=== PATIENT | female | born 1970 | race Caucasian/White ===

== ENCOUNTER 2020-03-07 08:31 | Outpatient (CLI) | payer OTHER, SELFPAY ==
--- NOTE | ~2020-03-07 | MM_ITS ---
EXAMINATION: MM screening [place] [facility] w [facility]an HISTORY: Screening TECHNIQUE: Craniocaudal and mediolateral oblique 3-D tomosynthesis images were obtained and synthetic 2-D images were generated. CAD analysis was submitted and interpreted. COMPARISON: Comparison to multiple prior studies sequentially, with oldest reviewed study dated 02/03. BREAST PARENCHYMAL COMPOSITION: The breasts are heterogeneously dense, which may obscure small masses . FINDINGS: There is no evidence of suspicious mass, calcification, or architectural distortion to sugg est malignancy in either breast. There has been no suspicious interval change. IMPRESSION: 1. No mammographic evidence of malignancy. 2. Recommend routine screening mammography in one year. BI-RADS Category 1: Negative Reviewed, dictated and finalized at location A. ESIASTICAL WORKER
== END 2020-03-07 08:32 | disposition home or self-care (01) ==
LOC: ANHIMG 08:33
PROVIDERS: PCP Family Medicine; Visit Provider Obstetrics & Gynecology
DX: Z12.31 Encounter for screening mammogram for malignant neoplasm of breast (principal)
CPT/HCPCS: 77063; 77067

== ENCOUNTER 2021-04-26 09:13 | Outpatient (CLI) | payer BC, SELFPAY ==
--- NOTE | ~2021-04-26 | MM_ITS ---
EXAMINATION: MM screening [facility] BI w alan HISTORY: Screening mammogram TECHNIQUE: Craniocaudal and mediolateral oblique 3-D tomosynthesis images were obtained and synthetic 2-D images were generated. CAD analysis was submitted and interpreted. COMPARISON: 03/07/2020, 03/04/2019, 02/28/2018 BREAST PARENCHYMAL COMPOSITION: The breasts are heterogeneously dense, which may obscure small masses . FINDINGS: There is no evidence of suspicious mass, calcification, or architectural distortion to sugg est malignancy in either breast. There has been no suspicious interval change. IMPRESSION: 1. No mammographic evidence of malignancy. 2. Recommend routine screening mammography in one year. BI-RADS Category 1: Negative Reviewed, dictated and finalized at location A. SCIENCE AND PLANNING
== END 2021-04-26 09:14 | disposition home or self-care (01) ==
LOC: ANHIMG 09:16
PROVIDERS: PCP Physician Assistant; Visit Provider Obstetrics & Gynecology
DX: Z12.31 Encounter for screening mammogram for malignant neoplasm of breast (principal)
CPT/HCPCS: 77063; 77067

== ENCOUNTER 2021-05-15 00:53 | Day surgery (SDC) | payer BC, SELFPAY ==
[2021-04-26 12:44] VITALS: BMI 31.0
--- NOTE | 2021-05-12 13:10 | PM.HPGS ---
History of Present Illness History of Present Illness Consent: Risks, benefits, and alternatives have been discussed and questions answered. Patient agrees to proceed with procedure. Chief complaint: neoplasm screening Narrative: Chanda Parks is a 50 year old female Referred for colon cancer screening Review of Systems Review of Systems: All systems reviewed & are unremarkable except as noted in HPI and below PMFSH Past Medical History Medical History GERD (gastroesophageal reflux disease) Hyperlipidemia Surgical History Surgical History History of tubal ligation Social History Social History Years smoked: 20 Smoking status: Former smoker Tobacco type: cigarettes Alcohol intake: current Drinks per week: 6 Living arrangements: with family Spiritual care concerns: No Meds Home Medications and Allergies Home Medications Medication Instructions Recorded Confirmed Type bupropion HCl 150 mg PO DAILY 04/26/21 05/15/21 History venlafaxine 75 mg PO DAILY 04/26/21 04/26/21 History Allergies Allergy/AdvReac Type Severity Reaction Status Date / Time No Known Allergies Allergy Unknown Unverified 05/15/21 06:15 Exam Resp: Auscultation: clear to auscultation bilaterally Cardio: Rate: regular rate Rhythm: regular rhythm GI: GI Palp: Yes Soft to palpation and No Tenderness to palpation present (GI) Assessment and Plan Assessment and plan (1) Colon cancer screening: Code(s): Z12.11 - Encounter for screening for malignant neoplasm of colon Status: Acute Assessment and Plan: Colonoscopy with possible biopsy or polypectomy or cautery or injection of substances.
[2021-05-15] MEDS: LACTATED RINGERS 1,000 ML 150 ML IV CONT (06:30)
--- NOTE | 2021-05-15 06:45 | WPDANESEPPF ---
Anes - Initial Pre Proc Eval Procedure: Operation Date: 05/15/21 11:30 Proposed Procedures p Screening Colonoscopy - Julian Watts MD Date/Time: 05/15/21 06:45 Surgeon: Julian Watts MD Pre Op Diagnosis: neoplasm screening Patient Data Age: 50 Gender: F Height: 1.57 m Weight: 76 kg Allergies Allergy/AdvReac Type Severity Reaction Status Date / Time No Known Allergies Allergy Unknown Unverified 05/15/21 06:15 Home Medications Medication Instructions Recorded Confirmed Type bupropion HCl 150 mg PO DAILY 04/26/21 05/15/21 History venlafaxine 75 mg PO DAILY 04/26/21 04/26/21 History Patient hx anesthesia problems: none Family hx anesthesia problems: none Results Review: All pre-operative results and documents have been reviewed as part of the pre-operative evaluation. [facility] Past Medical History Medical History (Updated 05/12/21 @ 13:11 by Julian Watts MD) GERD (gastroesophageal reflux disease) Hyperlipidemia Surgical History Surgical History (Updated 05/12/21 @ 12:11 by Davide Oliver DO) History of tubal ligation Social History Social History Years smoked: 20 Smoking status: Former smoker Tobacco type: cigarettes Alcohol intake: current Drinks per week: 6 Living arrangements: with family Spiritual care concerns: No Anes - Eval Final PreProcedure Day of Procedure 05/15/21 06:45 Patient weight: obese Heart: regular rate and rhythm Lungs: clear to auscultation and normal air movement Airway: Mallampati scale class II Neurological: alert and oriented Last oral intake: >/= 8 hours ASA classification: II Emergent: no Anesthetic plan: proceed Anesthesia type and monitoring: general GIVS and standard monitoring Results Review: All pre-operative results and documents have been reviewed as part of the pre-operative evaluation. Informed Consent: The patient's anesthetic plan and its attendant risks and benefits were discussed with the patient/family/POA. Questions were solicited and answers provided to the satisfaction of the patient/family/POA.
[2021-05-15 07:45] VITALS: BP 97/63; PULSE 74; RESP 20; O2SAT 98
[2021-05-15 07:55] VITALS: BP 126/85; PULSE 74; RESP 20; O2SAT 100
[2021-05-15 08:05] VITALS: BP 128/65; PULSE 70; RESP 18; O2SAT 100
== END 2021-05-15 11:28 | disposition home or self-care (01) ==
PROVIDERS: PCP Physician Assistant; Visit Provider Internal Medicine Gastroenterology
PROC: 0DJD8ZZ Inspection of Lower Intestinal Tract, Via Natural or Artificial Opening Endoscopic (ICD-10-PCS; CPT 45378; principal; 2021-05-15 11:30)
DX: Z12.11 Encounter for screening for malignant neoplasm of colon (principal); K57.30 Diverticulosis of large intestine without perforation or abscess without bleeding; K21.9 Gastro-esophageal reflux disease without esophagitis; E78.5 Hyperlipidemia, unspecified; Z87.891 Personal history of nicotine dependence; E66.9 Obesity, unspecified; Z68.30 Body mass index [BMI] 30.0-30.9, adult
CPT/HCPCS: 45378; J2704; J7120

== ENCOUNTER → 2022-05-18 10:28 | Outpatient (CLI) | payer BC, SELFPAY ==
--- NOTE | ~2022-05-18 | DEXA_ITS ---
Bone Density Report Name: KRISTI GAITAN Age: 51 Sex: Female Ethnicity: White Date of : 1970 Indication: postmenopausal; screening for osteoporosis; prior fracture; Referring Provider: JAMES, AMINAH Study: Bone densitometry was performed. Exam Date: May 18, 2022 Accession number: [id number] Bone Density: Region BMD T-score Z-score Classification AP Spine (L1-L4) 1.065 0.2 1.0 Normal Femoral Neck (Left) 0.678 -1.5 -0.7 Osteopenia Total Hip (Left) 0.790 -1.2 -0.7 Osteopenia Femoral Neck (Right) 0.732 -1.1 -0.2 Osteopenia Total Hip (Right) 0.828 -0.9 -0.4 Normal Total Hip Mean 0.809 -1.1 -0.6 Osteopenia World Health Organization criteria for BMD impression classify patients as: Normal (T-score at or above -1.0), Osteopenia (T-score between -1.0 and -2.5), or Osteoporosis (T-score at or below -2.5). 10-year Fracture Risk(1): Major Osteoporotic Fracture 9.0% Hip Fracture 0.8% Reported Risk Factors: [place] (), Neck BMD=0.678, BMI=32.0, previous fracture (1) FRAX(R) Version 3.08. Fracture probability calculated for an untreated patient. Fracture probability may be lower if the patient has received treatment. Clinical Information Provided by Patient: Has had a low trauma fracture Has used the following medications: Vitamin D, MTV Patient maximum height was 63.0 Menopause Age: 45 No regular weight bearing exercise Drinks caffeinated beverages Onset of menses at age 12 Number of children 3 Impression: The patient has low bone mass, based on the Left Femoral Neck T-score. The patient has an estimated ten-year risk of hip fracture of 0.8% and an estimated ten-year risk of major fracture of 9%, based on the WHO FRAX algorithm. The patient has risk factors, including: previous fracture. Discussion: BONE DENSITY IS LOW AT ONE OR MORE SKELETAL SITES. This patient's lowest T-score is low at one or more skeletal sites. It meets the World Health Organization's (WHO) criteria for ?low bone mass? (T-score between -1.0 and -2.5). The patient's 10-year risk of fracture as calculated by FRAX is less than the threshold where pharmacological therapy is recommended by the National Osteoporosis Foundation (NOF). However, all treatment decisions require clinical judgment and consideration of individual patient factors, including patient preferences, comorbidities, previous drug use, risk factors not captured in the FRAX model (e.g., frailty, falls, vitamin D deficiency, increased bone turnover, interval significant decline in bone density) and possible under or overestimation of fracture risk by FRAX. The patient should follow a healthful lifestyle (good nutrition with adequate calcium and vitamin D, and appropriate weight-bearing exercise). Follow-Up: Consider repeating this study in 2
== END ==
PROVIDERS: PCP Nurse Practitioner; Visit Provider Nurse Practitioner
DX: Z78.0 Asymptomatic menopausal state (principal); M85.852 Other specified disorders of bone density and structure, left thigh; M85.851 Other specified disorders of bone density and structure, right thigh
CPT/HCPCS: 77080

== ENCOUNTER → 2022-06-19 14:54 | Outpatient (CLI) | payer BC, SELFPAY ==
--- NOTE | ~2022-06-19 | MM_ITS ---
EXAMINATION: MM screening [place] w [facility]an HISTORY: Screening TECHNIQUE: Craniocaudal and mediolateral oblique 3-D tomosynthesis images were obtained and synthetic 2-D images were generated. CAD analysis was submitted and interpreted. COMPARISON: Comparison to multiple prior studies sequentially, with oldest reviewed study dated 02/04. BREAST PARENCHYMAL COMPOSITION: The breasts are heterogeneously dense, which may obscure small masses . FINDINGS: There are new small bilateral breast masses which are obscured by fibroglandular tissue. Ri ght breast mass located centrally. Left breast mass located in the lower inner quadrant, middle third . IMPRESSION: 1. Small bilateral breast masses. 2. Additional spot compression and mediolateral views with possible follow-up breast ultrasound recom mended. BI-RADS Category 0: Incomplete: Needs additional imaging evaluation. Reviewed, dictated and finalized at location A. E FEEDER IMPRESSION: 1. Small bilateral breast masses. 2. Additional spot compression and mediolateral views with possible follow-up b reast ultrasound recommended. BI-RADS Category 0: Incomplete: Needs additional imaging evaluation.
== END ==
PROVIDERS: PCP Nurse Practitioner; Visit Provider Nurse Practitioner
DX: Z12.31 Encounter for screening mammogram for malignant neoplasm of breast (principal); N63.20 Unspecified lump in the left breast, unspecified quadrant; N63.10 Unspecified lump in the right breast, unspecified quadrant
CPT/HCPCS: 77063; 77067

== ENCOUNTER 2022-07-11 11:15 | Outpatient (CLI) | payer BC, SELFPAY ==
--- NOTE | ~2022-07-11 | MM_ITS ---
EXAMINATION: MM diagnostic [place] [facility] w alan HISTORY: Possible breast masses on screening mammogram TECHNIQUE: Additional 3-D tomosynthesis images of the breasts were performed and synthetic 2-D images were generated. CAD analysis was submitted and interpreted. COMPARISON: 06/19/2022, 04/26/2021, 03/07/2020 FINDINGS: There is a return to baseline fibroglandular appearance with spot compression of the breast s in the areas questioned on screening mammogram. IMPRESSION: 1. No mammographic evidence of malignancy. 2. Recommend routine screening mammography in one year. BI-RADS Category 1: Negative Reviewed, dictated and finalized at location A. HOUSE ORDER PICKER
== END 2022-07-11 11:16 | disposition home or self-care (01) ==
PROVIDERS: PCP Nurse Practitioner; Visit Provider Obstetrics & Gynecology Gynecology
DX: R92.8 Other abnormal and inconclusive findings on diagnostic imaging of breast (principal)
CPT/HCPCS: 77062; 77066; G0279

== ENCOUNTER → 2022-10-15 09:49 | Outpatient (CLI) | payer BC, SELFPAY ==
--- NOTE | ~2022-10-15 | XR_ITS ---
EXAMINATION: XR lumbar spine 2-3V DATE: 10/15/2022 10:20 INDICATION: Low back pain TECHNIQUE: Anteroposterior and lateral views of the lumbar spine, and cone-down lateral view of the l umbosacral junction were obtained. COMPARISON: None. FINDINGS: Bone alignment is normal. There is no fracture. The vertebral body heights are maintained. There is mild loss of intervertebral disc space height at L5-S1. There is mild facet joint osteoarthr itis of the lower lumbar spine. IMPRESSION: 1. Mild lumbar spondylosis without acute findings. Reviewed, dictated and finalized at location A.
== END ==
PROVIDERS: PCP Physician Assistant; Visit Provider Physician Assistant
DX: M47.816 Spondylosis without myelopathy or radiculopathy, lumbar region (principal)
CPT/HCPCS: 72100

== ENCOUNTER → 2023-04-13 09:38 | Outpatient (CLI) | payer BC, SELFPAY ==
--- NOTE | ~2023-04-13 | US_ITS ---
EXAMINATION: US transvaginal DATE: 04/13/2023 10:01 INDICATION: Postmenopausal bleeding TECHNIQUE: Multiple endovaginal sonographic images of the pelvis were obtained. COMPARISON: 08/30/2015 FINDINGS: The uterus measures 5.5 x 2.9 x 4.0 cm. The endometrial complex measures 5 mm. The ovaries are not visualized however no adnexal abnormality is seen. There is no free fluid in the pelvis. IMPRESSION: 1. No sonographic correlate for the patient's symptoms. Reviewed, dictated and finalized at location F. ILE SCREEN MAKER
== END ==
PROVIDERS: PCP Nurse Practitioner; Visit Provider Nurse Practitioner
DX: N95.0 Postmenopausal bleeding (principal)
CPT/HCPCS: 76830

== ENCOUNTER 2023-05-13 00:35 | Day surgery (SDC) | payer BC, SELFPAY ==
[2023-04-30 12:12] VITALS: BMI 32.8
--- NOTE | 2023-04-30 12:29 | PC.NURSE ---
Report to the Outpatient Waiting Room, entrance under the green pavilion located off [facility], at time _0800AM_ on date 05/13/23 . Planned Procedure Time: 1000AM__. Time changes happen often and if your time is changed the preop area will call you the afternoon before. - You and your visitor will be asked to self-screen and do not enter if you have any COVID symptoms. - A mask is optional within the hospital at this time. Patients may have clear liquids (water, carbonated beverages, clear teas, apple juice) until 3 hours prior to surgery with a maximum of 20 ounces. - No food from midnight until time of surgery Take the following medications with a SIP of water the morning of surgery: __VENLAFAXINE; MISOPROSTOL ( DIRECTED BY DR. MACEDO) DO NOT STOP ANY OF YOUR OTHER PRESCRIPTION MEDICATIONS PRIOR TO SURGERY ?EXCEPT THE FOLLOWING Medications to discontinue per physician MELOXICAM Date to take last dose__CONSULT DR. MACEDO Please no make-up, nail bhutanese, hairspray, perfume, deodorant, or body powder the day of surgery. No jewelry (including any body piercings) or valuables the day of surgery, leave them at home. Please take a shower or bath the night before, or the morning of, surgery with an antibacterial soap. Wear comfortable, loose fitting clothing. - Jewelry must be removed prior to entering the operating room. Rings and piercings that are not removed may be cut off. - The hospital will not accept responsibility for valuables. - Please leave all valuables, including medications, at home the day of surgery. If you are going home after surgery, a licensed hazardous materials driver must drive you home. - NO public transportation without another adult if you receive anesthesia. - We recommend that an adult stay with you for 24 hours following discharge. - We also recommend that you do not drive, make important decision, drink alcoholic beverages, or take any drugs that were not prescribed by your health care provider for at least 24 hours after your discharge time. Follow any additional instructions given to you from your surgeon. If you or anyone in your household have experienced Covid symptoms in the past week, please notify your surgeon or the nurse liaison at the phone number below for possible testing. Telephone instructions given to __HEATHER and asked if any additional questions and then verbalized understanding. Patient advised to call surgeon office or pre surgery nurse liaison [phone] if any additional questions.
--- NOTE | 2023-05-13 07:32 | WPDHPUPDATE1 ---
History and Physical Update Update Date/Time: 05/13/23 07:32 History and Physical has been reviewed, including an updated exam of the patient. There are NO changes in the patient's condition. Risks, benefits, and alternatives have been discussed and questions answered. Patient agrees to proceed with procedure.
--- NOTE | 2023-05-13 07:32 | PM.HPGS ---
History of Present Illness History of Present Illness Consent: Risks, benefits, and alternatives have been discussed and questions answered. Patient agrees to proceed with procedure. Chief complaint: Post Menopausal Bleeding Narrative: Chanda Parks is a 52 year old female with 2 episodes vaginal bleeding. Pelvic ultrasound showed a thickened lining. It was recommended to undergo D&C hysteroscopy for further evaluation. Especially due to prior ablation, the risk uterine perforation and inability and the cavity were reviewed. Patient was given Cytotec to take for 1 week prior to procedure. Risks of infection, bleeding and possible pathology are reviewed. Patient voices understanding and agrees to proceed. Review of Systems Review of Systems: not repeated day of surgery; patient states no changes in status PMFSH Past Medical History Medical History (Updated 05/13/23 @ 07:37 by Breana Nelson MD) GERD (gastroesophageal reflux disease) Hyperlipidemia (normal spontaneous vaginal delivery) x3 Surgical History Surgical History (Updated 05/13/23 @ 07:36 by Breana Nelson MD) History of endometrial ablation History of tubal ligation Social History Social History Smoking packs per day: 1.5 Smoking cigarettes per day: 30.0 Years smoked: 25 Smoking pack-years: 37.50 Smoking status: Former smoker Tobacco type: cigarettes Smoking end date: 10/04/09 Alcohol intake: current Drinks per week: 6 Substance use: never Living arrangements: with family Spiritual care concerns: No Meds Home Medications and Allergies Home Medications Medication Instructions Recorded Confirmed Type venlafaxine 75 mg capsule,extended 150 mg PO DAILY 04/26/21 04/30/23 History release 24 hr atorvastatin 20 mg tablet (Lipitor) 20 mg PO DAILY 11/29/21 04/30/23 History meloxicam 15 mg tablet 15 mg PO DAILY 04/30/23 04/30/23 History Allergies Allergy/AdvReac Type Severity Reaction Status Date / Time No Known Allergies Allergy Unknown Unverified 04/30/23 12:34 Exam : Bimanual exam- vagina & uterus: other (Uterus firm, nt @U) Assessment and Plan Assessment and plan (1) Post-menopausal bleeding: Code(s): N95.0 - Postmenopausal bleeding Status: Acute Assessment and Plan: plan to proceed with D&C hysteroscopy
[2023-05-13 08:30] VITALS: BP 144/85; PULSE 78; RESP 16; TEMP 36.7; O2SAT 98
[2023-05-13] MEDS: LACTATED RINGERS 1,000 ML 30 ML IV CONT (08:30)
[2023-05-13] MEDS: ACETAMINOPHEN 500 MG TABLET 1000 MG PO (08:55)
--- NOTE | 2023-05-13 08:57 | P.PNAN_ITS ---
Anes - Initial Pre Proc Eval Procedure: Operation Date: 05/13/23 10:00 Proposed Procedures p Hysteroscopy Dilation and Curettage - Breana Nelson MD Date/Time: 05/13/23 08:57 Surgeon: Breana Nelson MD Pre Op Diagnosis: Post Menopausal Bleeding Patient Data Age: 52 Gender: F Height: 1.57 m Weight: 78.9 kg Last Vital Signs Temp 36.7 C 05/13/23 08:30 Pulse 78 05/13/23 08:30 Resp 16 05/13/23 08:30 BP 144/85 H 05/13/23 08:30 Pulse Ox 98 05/13/23 08:30 O2 Del Method Room Air 05/13/23 08:30 Allergies Allergy/AdvReac Type Severity Reaction Status Date / Time No Known Allergies Allergy Unknown Unverified 05/13/23 08:51 Home Medications Medication Instructions Recorded Confirmed Type venlafaxine 75 mg capsule,extended 150 mg PO DAILY 04/26/21 04/30/23 History release 24 hr atorvastatin 20 mg tablet (Lipitor) 20 mg PO DAILY 11/29/21 04/30/23 History meloxicam 15 mg tablet 15 mg PO DAILY 04/30/23 05/13/23 History Patient hx anesthesia problems: none Family hx anesthesia problems: none Results Review: All pre-operative results and documents have been reviewed as part of the pre- operative evaluation. PMFSH Past Medical History Medical History GERD (gastroesophageal reflux disease) Hyperlipidemia (normal spontaneous vaginal delivery) x3 Surgical History Surgical History History of endometrial ablation History of tubal ligation Social History Social History Smoking packs per day: 1.5 Smoking cigarettes per day: 30.0 Years smoked: 25 Smoking pack-years: 37.50 Smoking status: Former smoker Tobacco type: cigarettes Smoking end date: 10/04/09 Alcohol intake: current Drinks per week: 6 Substance use: never Living arrangements: with family Spiritual care concerns: No Anes - Eval Final PreProcedure Day of Procedure 05/13/23 08:57 Patient weight: obese Heart: regular rate and rhythm Lungs: clear to auscultation Airway: Mallampati scale class II Neurological: alert and oriented Last oral intake: >/= 8 hours ASA classification: II Emergent: no Anesthetic plan: proceed Anesthesia type and monitoring: general GIVS and standard monitoring Results Review: All pre-operative results and documents have been reviewed as part of the pre- operative evaluation. Informed Consent: The patient's anesthetic plan and its attendant risks and benefits were discussed with the patient/family/POA. Questions were solicited and answers provided to the satisfaction of the patient/family/POA.
[2023-05-13 09:59] VITALS: BP 122/67; PULSE 74; RESP 18; O2SAT 95
--- NOTE | 2023-05-13 10:02 | W.PM.PROC2 ---
Procedure Note - Detailed Date of Procedure 05/13/23 Pre-op Diagnosis Post Menopausal Bleeding Post-op Diagnosis Same Procedure Performed D&C hysteroscopy Surgeon Breana Nelson MD Anesthesia MAC Findings cervical stenosis; uterus sounds to 7cm; uterus appears consistent with prior ablation with no obvious defects Description of Procedure The patient was taken to the operating room placed under anesthesia in dorsal lithotomy position. She was prepped and draped in the usual sterile fashion. [place] speculum was placed in the vagina and the cervix grasped on the anterior lip with a tenaculum. The uterus was attempted to be sounded and internal cervical stenosis is noted. Hegar dilators are used and I was still unable to enter the cavity. Os finders are used and I was still unable to enter the cavity. The Hysteroscope was used for hydrodissection and I was able to enter the cavity. The endometrium appears very scarred from prior ablation with 1 small bleeding area with no discrete lesions. The hysteroscope was removed and the uterus sounded to 7cm. The cervix required dilation to a 5 Hegar in order for the OO sharp curette to pass the internal os. The endometrium was then curetted in a sharp manner until a good uterine cry was noted in all areas. Minimal material was obtained consistent with the visual appearance. Instruments are removed. Sponge, needle, and instrument counts are correct per the OR staff. The patient was awakened from anesthesia and taken to recovery in stable condition. Estimated Blood Loss 5 Drains No Packing No Pathology Yes ( Endometrial curettings) Complications No immediate complications Condition Stable Disposition PACU
[2023-05-13] MEDS: oxyCODONE HCL (*CRX) 5 MG TAB IR PO (10:06)
[2023-05-13 10:30] VITALS: BP 140/72; PULSE 70; RESP 18
== END 2023-05-13 10:57 | disposition home or self-care (01) ==
PROVIDERS: PCP Physician Assistant; Visit Provider Obstetrics & Gynecology Gynecology
PROC: 0U5B8ZZ Destruction of Endometrium, Via Natural or Artificial Opening Endoscopic (ICD-10-PCS; CPT 58563; principal; 2023-05-13 10:00)
DX: N95.0 Postmenopausal bleeding (principal); N88.2 Stricture and stenosis of cervix uteri; K21.9 Gastro-esophageal reflux disease without esophagitis; E78.5 Hyperlipidemia, unspecified; E66.9 Obesity, unspecified; Z68.31 Body mass index [BMI] 31.0-31.9, adult; Z87.891 Personal history of nicotine dependence
CPT/HCPCS: 58558; 88305; A9270; J2250; J2704; J3010; J7120

== ENCOUNTER 2023-07-25 07:23 | Outpatient (CLI) | payer BC, SELFPAY ==
--- NOTE | ~2023-07-25 | MM_ITS ---
EXAMINATION: MM screening [place] BI w alan HISTORY: Screening TECHNIQUE: Craniocaudal and mediolateral oblique 3-D tomosynthesis images were obtained and synthetic 2-D images were generated. CAD analysis was submitted and interpreted. COMPARISON: Comparison to multiple prior studies sequentially, with oldest reviewed study dated 02/04. BREAST PARENCHYMAL COMPOSITION: Dense: The breasts are heterogeneously dense, which may obscure small masses FINDINGS: There is no evidence of suspicious mass, calcification, or architectural distortion to sugg est malignancy in either breast. There has been no suspicious interval change. IMPRESSION: 1. No mammographic evidence of malignancy. 2. Recommend routine screening mammography in one year. BI-RADS Category 1: Negative Reviewed, dictated and finalized at location A.
== END 2023-07-25 07:24 ==
PROVIDERS: PCP Nurse Practitioner; Visit Provider Nurse Practitioner
DX: Z12.31 Encounter for screening mammogram for malignant neoplasm of breast (principal)
CPT/HCPCS: 77063; 77067

== ENCOUNTER 2024-07-08 08:53 | Outpatient (CLI) | payer BC, SELFPAY ==
--- NOTE | ~2024-07-08 | DEXA_ITS ---
Bone Density Report Name: KRISTI GAITAN Age: 53 Sex: Female Ethnicity: White Date of : 1970 Indication: postmenopausal; screening for osteoporosis; Referring Provider: AUGUST, THU Study: Bone densitometry was performed. Exam Date: July 08, 2024 Accession number: [id number] Bone Density: Region BMD T-score Z-score Classification AP Spine(L1-L4) 0.971 -0.7 0.3 Normal Femoral Neck (Left) 0.633 -1.9 -1.0 Osteopenia Total Hip (Left) 0.775 -1.4 -0.8 Osteopenia Femoral Neck (Right) 0.673 -1.6 -0.6 Osteopenia Total Hip (Right) 0.824 -1.0 -0.4 Normal Total Hip Mean 0.799 -1.2 -0.6 Osteopenia World Health Organization criteria for BMD impression classify patients as: Normal (T-score at or above -1.0), Osteopenia (T-score between -1.0 and -2.5), or Osteoporosis (T-score at or below -2.5). 10-year Fracture Risk(1): Major Osteoporotic Fracture 6.4% Hip Fracture 0.7% Reported Risk Factors: [place] (), Neck BMD=0.633, BMI=34.1 (1) FRAX(R) Version 3.08. Fracture probability calculated for an untreated patient. Fracture probability may be lower if the patient has received treatment. Clinical Information Provided by Patient: Has used the following medications: Vitamin D Patient maximum height was 62.0 Menopause Age: 44 No regular weight bearing exercise Drinks caffeinated beverages Onset of menses at age 12 Number of children 3 Impression: The patient has low bone mass, based on the Left Femoral Neck T-score. The patient has an estimated ten-year risk of hip fracture of 0.7% and an estimated ten-year risk of major fracture of 6.4%, based on the WHO FRAX algorithm. Discussion: BONE DENSITY IS LOW AT ONE OR MORE SKELETAL SITES. This patient's lowest T-score is low at one or more skeletal sites. It meets the World Health Organization's (WHO) criteria for ?low bone mass? (T-score between -1.0 and -2.5). The patient's 10-year risk of fracture as calculated by FRAX is less than the threshold where pharmacological therapy is recommended by the National Osteoporosis Foundation (NOF). However, all treatment decisions require clinical judgment and consideration of individual patient factors, including patient preferences, comorbidities, previous drug use, risk factors not captured in the FRAX model (e.g., frailty, falls, vitamin D deficiency, increased bone turnover, interval significant decline in bone density) and possible under or overestimation of fracture risk by FRAX. The patient should follow a healthful lifestyle (good nutrition with adequate calcium and vitamin D, and appropriate weight-bearing exercise). Follow-Up: Consider repeating this study in 2 to 3 years to reassess this patient's status, or sooner if there is some new clinical indication. Reported by: ALEXIA on 07/08/2024 9:25:00 AM. Reviewed, dictated and finalized at location ARad[facility] GAN
--- OUTSIDE RECORDS SUMMARY | 2024-07-08 09:18 | XMS_ITS | Patient Health Summary ---
Author Organization [facility] Address [address] [place] [address] Care Team Providers Care Elementary Art Teacher Name Role Phone Willie Vinson Primary Care Provider [phone] Note from [facility],non-owned Affiliates and Associated Physician Practices is amultiple site organization consisting of ambulatory clinics and hospital sitesin [place], [place], [place] and [place]. This disclosure is being madepursuant to the Care Everywhere program and may not contain all information available regarding this patient. Last updated 18.[facility] Allergies No known active allergies Medications * Be aware that medications may not be up to date on this document. Alwaysverify current medications with the patient. * venlafaxine XR 24hr (Effexor XR) 150 MG capsule(Started 06/29/2023) Take 1 (one) capsule by mouth once daily * meloxicam (Mobic) 15 MG tablet(Started 05/07/2023) Take 1 (one) tablet by mouth once daily as needed * Atorvastatin Calcium (LIPITOR PO) Take by mouth once daily * famotidine (Pepcid) 10 MG tablet Take 2 (two) tablets by mouth once daily as needed for Heartburn Active Problems No known active problems Social History Tobacco Use Types Packs/Day Years Used Date Smoking Tobacco: Former Cigarettes Q uit: 2009 Smokeless Tobacco: Never Tobacco Cessation:Counseling Given: Not Answered Alcohol Use Standard Drinks/Week Comments Yes 2 (1 standard drink = 0.6 oz pure alcohol) once a while, a few times a month PHQ-2 Answer Date Recorded Patient Health Questionnaire-2 Score 0 10/15/2023 Sex and Gender Information Value Date Recorded Sex Assigned at Not on file Gender Identity Not on file Sexual Orientation Not on file Last Filed Vital Signs Vital Sign Reading Time Taken Comments Blood Pressure 130/76 10/18/2023 1:37 PM CDT Pulse 73 09/16/2023 2:39 PM CDT Temperature 35.9 C (96.6 F) 10/18/2023 1:37 PM CDT Respiratory Rate 16 09/16/2023 2:39 PM CDT Oxygen Saturation 99% 09/16/2023 2:39 PM CDT Inhaled Oxygen Concentration - - Weight 80.8 kg (178 lb 3.2 oz) 10/18/2023 1:37 P M CDT Height 157.5 cm (5' 2 ) 10/18/2023 1:37 PM CDT Body Mass Index 32.59 10/18/2023 1:37 PM CDT Medical Devices Implanted Type Area Mine Car Dispatcher Device Identifier Shelf Expiration Date Model / Serial / Lot Sys Ureth Supp Obtryx Midurethral Trnstr Implanted:Qty: 1 on 09/16/2023 by Alvin Mejia Che, MD at [facility] N/A: Urethra [place] 12/17/2025 [id number] / / [id number] Procedures * CARDIAC RHYTHM STRIP ORDER(Performed 09/18/2023) * ENDOTRACHEAL TUBE NOTE(Performed 09/16/2023) * ID SLING OPER STRES INCONTINENCE(Performed 09/16/2023) Performed for Diagnosis unknown * BASIC METABOLIC PANEL (CALCIUM TOTAL)(Performed 08/15/2023) Performed for Midline cystocele, Stress incontinence, Pre-op testing * CBC W/O DIFFERENTIAL(Performed 08/15/2023) Performed for Midline cystocele, Stress incontinence, Pre-op testing * ID ANAL/URINARY MUSCLE STUDY(Performed 07/16/2023) Performed for Midline cystocele, Stress incontinence, Urge incontinence * ID INTRAABDOMINAL PRESSURE TEST(Performed 07/16/2023) Performed for Midline cystocele, Stress incontinence, Urge incontinence * ID CYSTOMETROGRAM W/REGIONAL SALES CONSULTANT&UP(Performed 07/16/2023) Performed for Midline cystocele, Stress incontinence, Urge incontinence * ID CYSTOURETHROSCOPY(Performed 07/16/2023) Performed for Midline cystocele, Stress incontinence, Urge incontinence * URINALYSIS W/MICROSCOPIC NO CULTURE(Performed 07/03/2023) Performed for Microscopic hematuria * CULTURE URINE COMPREHENSIVE(Performed 07/03/2023) Performed for Urge incontinence * ID INSERT NON-INDWELLING BLADDER(Performed 07/03/2023) Performed for Urge incontinence * URINALYSIS AUTO - POINT OF CARE (AMB) [facility](Performed 07/03/2023) Performed for Urge incontinence * XR ANKLE LEFT 3VW OR MORE(Performed 05/18/2008) Performed for Joint Pain-Ankle * HCG URINE QUALITATIVE - POINT OF CARE(Performed 05/18/2008) Results * CARDIAC RHYTHM STRIP ORDER (09/18/2023 10:15 PM CDT) Narrative 09/18/2023 10:15 PM CDT Ordered by an unspecified provider. Scanned Document CARDIAC SERVICES ORD ERABLES * ETT LINE PERFORMABLE (09/16/2023 11:34 AM CDT) Narrative Garry Kline APRN-CRNA - 09/16/2023 11:34 AM CDT Garry Kline APRN-CRNA 09/16/2023 11:34 AM Endotracheal Tube Placement: Patient Location: OR. Intubation Event Date/Time: 09/16/2023 11:23 AM Procedure: intubation ([id number]). Procedure Section: Sedation: under general anesthesia. Indications for Airway Management: anesthesia Induction: standard IV Patient Position: sniffing Mask Ventilation: easy. Blade Type: Anika Blade Size: 4 Laryngoscopy View: grade 1 (full cords) Tube: endotracheal tube Placement: oral Tube type: cuff - inflated Tube Size (MM): 7 Depth of Insertion (CM): 22 Measured From: lips Cuff Inflated With: air Number of Attempts: 1. Placement Verified By: direct visualization, bilateral breath sounds and CO2 monitor Tube secured with: adhesive tape. Dentition unchanged? Yes Difficult Airway? No. Procedure Start Time: 09/16/2023 11:23 AM. Staff Section Anesthesia Provider: Garry Kline APRN-CRNA, Performed the procedure Georgia Arzola MD GENERAL ANESTHESIA O RDERABLES * CBC W/O DIFFERENTIAL (08/15/2023 10:12 AM CDT) White Blood Cell Count 5.5 3.8 - 10.8 Thousand/u L [facility] RBC 4.26 3.80 - 5.10 Million/uL [facility] Hemoglobin 12.9 11.7 - 15.5 g/dL [facility] Hematocrit 39.5 35.0 - 45.0 % [facility] MCV 92.7 80.0 - 100.0 fL [facility] MCH 30.3 27.0 - 33.0 pg [facility] MCHC 32.7 32.0 - 36.0 g/dL [facility] RDW 12.0 11.0 - 15.0 % [facility] Platelet Count 242 140 - 400 Thousand/u L [facility] MPV 10.7 7.5 - 12.5 fL [facility] Comment: Test Performed at: [facility] [address] CASSY HANLEY MD Blood BLOOD SPECIMEN / Unknown 08/15/2023 10:12 AM CDT 08/15/2023 10:14 AM CDT Alvin Mejia MD LAB - HEMATOLOGY ORD ERABLES [address] [address] * (ABNORMAL) BASIC METABOLIC PANEL (CALCIUM TOTAL) (08/15/2023 10:12 AM CDT) Glucose 120(H) 65 - 99 mg/dL [facility] Comment: Fasting reference interval For someone without known diabetes, a glucose value between 100 and 125 mg/dL is consistent with prediabetes and should be confirmed with a follow-up test. BUN 15 7 - 25 mg/dL [facility] Creatinine 0.67 0.50 - 1.03 mg/dL [facility] eGFR by Cystatin C 105 > OR = 60 mL/min/1. 73m2 [facility] BUN/Creatinine Ratio SEE NOTE: 6 - 22 (calc) [facility] Comment: Not Reported: BUN and Creatinine are within reference range. Sodium 140 135 - 146 mmol/L [facility] Potassium 4.2 3.5 - 5.3 mmol/L [facility] Chloride 104 98 - 110 mmol/L [facility] CO2 29 20 - 32 mmol/L [facility] Calcium 9.3 8.6 - 10.4 mg/dL [facility] Comment: Test Performed at: [facility] [address] CASSY HANLEY MD Blood BLOOD SPECIMEN / Unknown 08/15/2023 10:12 AM CDT 08/15/2023 10:14 AM CDT Alvin Mejia MD LAB - CHEMISTRY ALEM BARCENAS [facility] [address] [place] [address] * ID CYSTOMETROGRAM W/REGIONAL SALES CONSULTANT&UP, ID INTRAABDOMINAL PRESSURE TEST, ID ANAL/URINARY MUSCLE STUDY (07/16/2023 1:56 PM CDT) Narrative Alvin Mejia Che, MD - 07/16/2023 1:56 PM CDT Alvin Mejia Che, MD 07/16/2023 1:58 PM Multichannel Urodynamic Testing - Procedure Note Indications: Multichannel urodynamic testing is being performed to fully evaluate the patient's voiding dysfunction. The risks, benefits and alternatives have been discussed with emphasis on discomfort and urinary tract infections. Procedure Details: The patient's urethral meatus was cleaned with Betadine (used if not allergic to topical iodine, otherwise hibiclens was used). A 7 Fr. Single sensor air-charged catheter was place into the vagina or into the rectum if the pelvic prolapse required restitution for adequate testing. A 7 Fr. Dual sensor air-charged catheter was inserted into the urethra. During testing, the patient's prolapse was reduced with either procto-swabs, or digitally. Cystometrogram: The bladder was filled with room temperature water at a rate of 100 cc per minute. The patient tolerated this and she was found to have: First sensation (S1) at 12 cc. Sensation of fullness at 294 cc. Maximal cystometric capacity of 436 cc. She does have normal bladder compliance. She does not have loss of urine with a rise in detrusor pressure. Valsalva leak point pressure (VLPP): VLPP at 150 cc: 34 VLPP at [facility] : 127 Urethral pressure profilometry (UPP): Maximal urethral closure pressure (MUCP): 66 Leakage amount: Moderate amount Voiding pressure study (REGIONAL SALES CONSULTANT): She voided via detrusor contraction. She only fully voided after all instruments removed. Electromyolography (EMG) EMG patches were placed perianally and on the leg for ground. Normal response with squeeze and relaxation was noted. Normal EMG was noted with appropriate relaxation with study. Alvin Mejia MD PROCEDURE/MINOR SURG ICAL ORDERABLES * ID CYSTOURETHROSCOPY (07/16/2023 1:55 PM CDT) Narrative Alvin Mejia Che, MD - 07/16/2023 1:55 PM CDT Alvin Mejia Che, MD 07/16/2023 1:56 PM Cystoscopy Procedure Note Indications: frequency and urgency Procedure Details: The patient was counseled about the procedure including risks, benefits, alternatives, and given a detailed description of what to expect. Cystoscopy was performed with a rigid 70 degree cystoscopy with a 17F sheath under aseptic conditions. The urethra was cleaned with Betadine solution (unless she was allergic to topical iodine when hibiclens was used). A careful examination of all quadrants was performed in a systematic fashion. The patient tolerated the procedure well and was allowed to watch the examination on a video monitor. Urethral visualization was also done. Findings: She was found to have trabeculations onlyh. Efflux was noted from the both ureteral orifice. Squamous metaplasia was noted. No lesions. Condition: Good Complications: None Alvin Mejia MD PROCEDURE/MINOR SURG ICAL ORDERABLES * URINALYSIS W/MICROSCOPIC NO CULTURE (07/03/2023 11:50 AM CHINESE HERBALIST) Color UA YELLOW YELLOW [facility] Appearance CLEAR CLEAR [facility] Specific [place] UA 1.015 1.001 - 1.035 [facility] pH UA 6.0 5.0 - 8.0 [facility] Glucose UA NEGATIVE NEGATIVE [facility] Bilirubin UA NEGATIVE NEGATIVE [facility] Ketone UA NEGATIVE NEGATIVE [facility] Blood UA NEGATIVE NEGATIVE [facility] Protein UA NEGATIVE NEGATIVE [facility] Nitrite UA NEGATIVE NEGATIVE [facility] Leukocyte UA NEGATIVE NEGATIVE [facility] WBC UA NONE SEEN < OR = 5 /HPF [facility] RBC UA NONE SEEN < OR = 2 /HPF [facility] Epithelial Cell UA 0-5 < OR = 5 /HPF [facility] Bacteria UA NONE SEEN NONE SEEN /HPF [facility] Hyaline Casts NONE SEEN NONE SEEN /LPF [facility] Note See Below [facility] Comment: This urine was analyzed for the presence of WBC, RBC, bacteria, casts, and other formed elements. Only those elements seen were reported. Test Performed at: [facility] [address] CASSY HANLEY MD Urine URINE SPECIMEN COLLECTION, CATHETERIZED / Unknown 07/03/2023 11:50 AM CHINESE HERBALIST 07/05/2023 4:15 AM CHINESE HERBALIST Alvin Mejia MD LAB - URINALYSIS ORD ERABLES Performing Organization Address [facility] Co de Phone Number [address] [address] * CULTURE URINE COMPREHENSIVE (07/03/2023 11:50 AM CHINESE HERBALIST) Culture [facility] Comment: CULTURE, URINE, SPECIAL Micro Number: [id number] Test Status: Final Specimen Source: Urine, catheter Specimen Quality: Adequate Result: No Growth Test Performed at: [facility] [address] CASSY HANLEY MD Microbiology URINE SPECIMEN COLLECTION, CATHETERIZED / Unknown 07/03/2023 11:50 AM CHINESE HERBALIST 07/05/2023 3:22 AM CHINESE HERBALIST Alvin Mejia MD LAB - MICROBIOLOGY O RDERABLES Performing Organization Address [facility] [place] [place] [address] * ID INSERT NON-INDWELLING BLADDER (07/03/2023 11:48 AM CHINESE HERBALIST) Narrative Avlin Mejia Che, MD - 07/03/2023 11:48 AM CHINESE HERBALIST Alvin Mejia Che, MD 07/03/2023 11:48 AM The patient was prepped with betadine (or with hibiclens or other antiseptic agent if allergic to topical iodine). She understood the rationale for the procedure and agreed to the procedure. A 14F short female catheter was then advanced into the urethra and urine was collected for bedside urinalysis as well as a urine culture and/or formal urinalysis as needed. The post void residual is as noted in the progress note, as are results of the dipstick taken. The patient tolerated the procedure well. Alvin Mejia MD PROCEDURE/MINOR SURG ICAL ORDERABLES * (ABNORMAL) URINALYSIS AUTO - POINT OF CARE (AMB) [facility] (07/03/2023) Glucose UA neg OTHER LAB Bilirubin UA POCT neg OTHER LAB Ketones UA POCT neg OTHER LAB Specific Montgomery UA 1.015 OTHER LAB Blood Urine POCT + OTHER LAB pH UA 6.0 OTHER LAB Protein UA neg OTHER LAB Urobilinogen UA 0.2 OTHER LAB Nitrite UA neg OTHER LAB WBC UA neg OTHER LAB Urine URINE / Unknown 07/03/2023 Alvin Luz Mejia MD LAB - POINT OF CARE ORDERABLES OTHER LAB * XR ANKLE 3+ VW LEFT (05/18/2008 6:34 PM CHINESE HERBALIST) Anatomical Region Laterality Modality Lower Extremity Other 05/18/2008 6:34 PM CHINESE HERBALIST Narrative 05/18/2008 7:27 PM CHINESE HERBALIST Left ankle 3 views Indication- Left ankle pain after falling at work today Three views of the left ankle demonstrate a coronally directed oblique fracture of the lateral malleolus with mild posterior displacement of the distal major fragment. There is marked overlying soft tissue swelling. The left ankle is otherwise negative. The mortise appears to be well aligned at this time. Read By- GARRY SHAFFER M.D. Released By- GARRY SHAFFER M.D. Released Date Time- 05/18/081926 Paint Mixer Hand- MARIBEL Bella ADM- EMERGENCY,PHYSICIANS ATT- EMERGENCY,PHYSICIANS REF- CON- PCP- PCP,NONE SCP- Procedure Note Garry Shaffer - 05/18/2008 Left ankle 3 views Indication- Left ankle pain after falling at work today Three views of the left ankle demonstrate a coronally directed oblique fracture of the lateral malleolus with mild posterior displacement of the distal major fragment. There is marked overlying soft tissue swelling. The left ankle is otherwise negative. The mortise appears to be well aligned at this time. Read By- GARRY SHAFFER M.D. Released By- GARRY SHAFFER M.D. Released Date Time- 05/18/081926 Paint Mixer Hand- ECE M.D. ADM- EMERGENCY,PHYSICIANS ATT- EMERGENCY,PHYSICIANS REF- CON- PCP- PCP,NONE SCP- Neville Aguirre MD DIAGNOSTIC IMAGING ORDERABLES * HCG URINE QUALITATIVE - POINT OF CARE (05/18/2008 6:13 PM CHINESE HERBALIST) HCG Qual Urine Not Detected Not Detected [facility] Comment , Urine: Test performed by [facility] EMD Staff [facility] URINE / Unknown 05/18/2008 6 :13 PM CHINESE HERBALIST Vy Ashton MD LAB - POINT OF CARE ORDERABLES [facility] Care Teams Elementary Art Teacher Relationship Specialty Start Date End Date Willie Vinson PA [address] [place] [phone] PCP - General Physician Coil Taper 07/03/23
--- OUTSIDE RECORDS SUMMARY | 2024-07-08 09:18 | XMS_ITS | Clinical Summary ---
Author Organization [facility] Address [address] [place] [address] Care Team Providers Care Services Manager Name Role Phone Willie Vinson Primary Care Provider [phone] Source Comments [facility],non-owned Affiliates and Associated Physician Practices is amultiple site organization consisting of ambulatory clinics and hospital sitesin [place], [place], [place] and [place]. This disclosure is being madepursuant to the Care Everywhere program and may not contain all information available regarding this patient. Last updated 18.[facility] Allergies No known active allergies Medications * Be aware that medications may not be up to date on this document. Alwaysverify current medications with the patient. Medication Sig Dispensed Refills Start Date End Date Status venlafaxine XR 24hr (Effexor XR) 150 MG capsule Take 1 (one) capsule by mouth once daily 06/29/2023 Active meloxicam (Mobic) 15 MG tablet Take 1 (one) tablet by mouth once daily as needed 05/07/2023 Active Atorvastatin Calcium (LIPITOR PO) Take by mouth once daily Active famotidine (Pepcid) 10 MG tablet Take 2 (two) tablets by mouth once daily as needed for Heartburn Active Active Problems No known active problems Family History Medical History Relation Name Comments Depression Mother Relation Name Status Comments Mother Social History Tobacco Use Types Packs/Day Years Used Date Smoking Tobacco: Former Cigarettes Q uit: 2010 Smokeless Tobacco: Never Tobacco Cessation:Counseling Given: Not [...] Mass Index 32.59 10/18/2023 1:37 PM CDT Plan of Treatment Health Maintenance Due Date Last Done Comments COLOGUARD (AGES 45-75) - COLON CA SCREENING 1970 COLON MONITORING 1970 COLONOSCOPY - COLON CA SCREENING 1970 CT COLONOGRAPHY - COLON CA SCREENING 1970 Colorectal Cancer Screening 1970 FIT - COLON CA SCREENING 1970 FLEX SIG - COLON CA SCREENING 1970 MAMMOGRAM 1970 PAP SMEAR 1970 HIV SCREENING 1985 HEPATITIS C SCREENING 12/17/1988 DTAP/TDAP/TD VACCINES (1 - Tdap) 1989 HEPATITIS B VACCINE (1 of 3 - 19+ 3-dose series) 1989 PNEUMOCOCCAL VACCINE 50+ (1 of 1 - PCV) 2020 ZOSTER VACCINE (1 of 2) 2020 COVID-19 VACCINE (3 - 2023- season) 2024 12/17/2020, 11/23/2020 INFLUENZA VACCINE (#1) 2024 , 03/01/2020, 03/17/2019, Additional history exists DEPRESSION SCREENING 05/06/2024 09/24/2023 SCREENING FOR DIABETES 08/14/2026 08/15/2023 HIB VACCINE Aged Out No longer eligi ble based on patient's age to complete this topic HPV VACCINE Aged Out No longer eligi ble based on patient's age to complete this topic MENINGOCOCCAL (Group B) VACCINE Aged Out No longer eligible based on patient's age to complete this topic MENINGOCOCCAL VACCINE Aged Out No simba laurence eligible based on patient's age to complete this topic Medical Devices Implanted Type Area Vault Custodian Device Identifier Shelf Expiration Date Model / Serial / Lot Sys Ureth Supp Obtryx Midurethral Trnstr Implanted:Qty: 1 on 09/16/2023 by Alvin Mejia Che, MD at [facility] N/A: Urethra Quill Content Scimed 12/17/2025 [id number] / / [id number] Procedures Procedure Name Priority Date/Time Associated Diagnosis Comments BASIC METABOLIC PANEL (CALCIUM TOTAL) Routine 08/15/2023 10:12 AM CDT Midline cystocele Stress incontinence Pre-op testing from Last 3 Months or Most Recently Relevant to Health Maintenance Results * (ABNORMAL) BASIC METABOLIC PANEL (CALCIUM TOTAL) [...] 10.4 mg/dL [facility] Comment: Test Performed at: [email or web address] [address] CASSY HANLEY MD Blood BLOOD SPECIMEN / Unknown 08/15/2023 10:12 AM CDT 08/15/2023 10:14 AM CDT Alvin Luz Mejia MD LAB - CHEMISTRY ALEM BARCENAS [facility] [address] [place] [address] from Last 3 Months or Most Recently Relevant to Health Maintenance Care Teams Services Manager Relationship Specialty Start Date End Date Willie Vinson PA [address] [place] [phone] PCP - General Physician State'S Attorney 07/03/23
--- OUTSIDE RECORDS SUMMARY | 2024-07-08 09:18 | XMS_ITS | Encounter Summary ---
Author Organization [facility] Address [address] [place] [address] Care Team Providers Care Biomass Plant Manager Name Role Phone Willie Vinson Primary Care Provider [phone] Reason for Visit * Reason Onset Date Comments Question 09/19/2023 Encounter Details Date Type Department Care Team (Late st Contact Info) Description 09/19/2023 Telephone [facility] [address], [facility] [address] [place] [address] Alvin Mejia Che, MD [address] [facility] [address] [place] [address] Question Social History Tobacco Use Types Packs/Day Years Used Date Smoking Tobacco: Former Cigarettes Q uit: 2009 Smokeless Tobacco: Never Alcohol Use Standard Drinks/Week Comments Yes 2 (1 standard drink = 0.6 oz pure alcohol) once a while, a few times a month PHQ-2 Answer Date Recorded Patient Health Questionnaire-2 Score 0 09/17/2023 Sex and Gender Information Value Date Recorded Sex Assigned at Not on file Gender Identity Not on file Sexual Orientation Not on file documented as of this encounter Miscellaneous Notes * Telephone Encounter - Joanna Smiley RN - 09/19/2023 10:34 AM CDT Return call to patient She is doing well Minimal pain Not taking anything for it But reassured that is normal as surgery was just Friday 09/15 She calls with catheter concern Urine ran out around side of catheter at insertion in urethra In conjunction with a burning bladder spasm sensation Only happened once Reassured bladder hoping to push urine out Good sign that bladder wants to empty To update in MyChart later today if it continues to be an issue * Telephone Encounter - Kari Adams - 09/19/2023 8:08 AM CDT Pt calling with a few questions, she did have surgery on sat and has a catheter . But she has some questions.. Please ocntact [phone] documented in this encounter Plan of Treatment Not on file documented as of this encounter Visit Diagnoses Not on filedocumented in this encounter Care Teams Biomass Plant Manager Relationship Specialty Start Date End Date Willie Vinson PA [address] [place] [phone] PCP - General Physician Work Environment Safety Inspector 07/03/23 documented as of this encounter
--- OUTSIDE RECORDS SUMMARY | 2024-07-08 09:18 | XMS_ITS | Clinical Summary ---
Author Organization [facility] Address [address] [place] [id number] Care Team Providers Care Change Agent Name Role Phone Unavailable Primary Care Provider Unavailabl e Social History Tobacco Use Types Packs/Day Years Used Date Smoking Tobacco: Never Assessed Comments Unknown Sex and Gender Information Value Date Recorded Sex Assigned at Not on file Legal Sex Female 4:37 PM CDT Gender Identity Not on file Sexual Orientation Not on file Last Filed Vital Signs Vital Sign Reading Time Taken Comments Blood Pressure - - Pulse - - Temperature - - Respiratory Rate - - Oxygen Saturation - - Inhaled Oxygen Concentration - - Weight 70.8 kg (156 lb) 04/10/2018 9:42 AM MARKET INTELLIGENCE CONSULTANT Height 157.5 cm (5' 2 ) 04/10/2018 9:42 AM MARKET INTELLIGENCE CONSULTANT Body Mass Index 28.53 04/10/2018 9:42 AM MARKET INTELLIGENCE CONSULTANT Plan of Treatment Health Maintenance Due Date Last Done Comments Cervical Cancer Screening Pa p Smear (Age 30 to 64) Every 3 Years 1970 Colorectal Cancer Screening Colonoscopy (10 Years) 1970 Annual Physical 1973 Hepatitis C 1988 DTaP, Tdap and Td Vaccines ( 1 - Tdap) 1989 Hepatitis B Vaccines (1 of 3 - 19+ 3-dose series) 1989 Cervical Cancer Screening Pa p with HPV Testing (Age 30 to 64) Every 5 Years 2000 Cervical Cancer Screening with HPV 2000 Mammogram Screening 2010 Zoster Vaccines (1 of 2) 2020 COVID-19 Vaccine (2023-2 5 season) 2024 Influenza Adult (#1) 2024 Meningococcal B Vaccine Aged Out No l onger eligible based on patient's age to complete this topic Meningococcal Vaccine Aged Out No simba laurence eligible based on patient's age to complete this topic Pneumococcal Vaccine: Pediat rics (0 to 5 Years) and At-Risk Patients (6 to 64 Years) Aged Out No longer eligible b ased on patient's age to complete this topic RSV Immunizations Under 20 Months Aged Out No longer eligible based on patient's age to complete this topic
--- OUTSIDE RECORDS SUMMARY | 2024-07-08 09:18 | XMS_ITS | Referral Summary ---
Author Organization [facility] Address [address] [place] [address] Care Team Providers Care Hoop Coiler Name Role Phone Willie Vinson Primary Care Provider [phone] Source Comments [facility],non-owned Affiliates and Associated Physician Practices is amultiple site organization consisting of ambulatory clinics and hospital sitesin [place], [place], [place] and [place]. This disclosure is being madepursuant to the Care Everywhere program and may not contain all information available regarding this patient. Last updated 18.[facility] Allergies No known active allergies Medications * [...] Active Active Problems No known active problems Social [...] 10/18/2023 1:37 PM CDT Plan of Treatment Not on file Medical Devices Implanted Type Area Stencil Cutter Machine Device Identifier Shelf Expiration Date Model / Serial / Lot Sys Ureth Supp Obtryx Midurethral Trnstr Implanted:Qty: 1 on 09/16/2023 by Alvin Mejia Che, MD at [facility] N/A: Urethra [employer] Sc[employer]ed 12/17/2025 [id number] / / [id number] Procedures Procedure Name Priority Date/Time Associated Diagnosis [...] 10.4 mg/dL [facility] Comment: Test Performed at: [facility] [address] CASSY HANLEY MD Blood BLOOD SPECIMEN / Unknown 08/15/2023 10:12 AM CDT 08/15/2023 10:14 AM CDT Alvin Mejia MD LAB - CHEMISTRY ALEM BARCENA[facility] [address] [address] from Last 3 Months or Most Recently Relevant to Health Maintenance Care Teams Hoop Coiler Relationship Specialty Start Date End Date Willie Vinson PA [address] [place] [phone] PCP - General Physician Explosive Operator 07/03/23
== END 2024-07-08 08:54 | disposition home or self-care (01) ==
LOC: ANHIMG 08:54
PROVIDERS: Visit Provider Nurse Practitioner Women's Health
DX: M85.88 Other specified disorders of bone density and structure, other site (principal); Z78.0 Asymptomatic menopausal state
CPT/HCPCS: 77080

== ENCOUNTER 2024-07-25 07:42 | Outpatient (CLI) | payer BC, SELFPAY ==
--- NOTE | ~2024-07-25 | MM_ITS ---
EXAMINATION: MM screening [place] BI w alan HISTORY: Screening TECHNIQUE: Craniocaudal and mediolateral oblique 3-D tomosynthesis images were obtained and synthetic 2-D images were generated. CAD analysis was submitted and interpreted. COMPARISON: and dating back to 04/26/2021 BREAST PARENCHYMAL COMPOSITION: The breasts are heterogeneously dense, which may obscure small masses . FINDINGS: Stable parenchymal pattern without suspicious microcalcifications, architectural distortion, discrete masses or significant asymmetry. IMPRESSION: 1. No mammographic evidence of malignancy. 2. Recommend routine screening mammography in one year. BI-RADS Category 1: Negative Reviewed, dictated and finalized at location A.
--- OUTSIDE RECORDS SUMMARY | 2024-07-25 07:44 | XMS_ITS | Clinical Summary ---
Author Organization [facility] Address [address] [place] [address] Care Team Providers Care Outbound Sales Specialist Name Role Phone Willie Vinson Primary Care Provider [phone] Source Comments [facility],non-owned Affiliates and Associated Physician Practices is amultiple site organization consisting of ambulatory clinics and hospital sitesin [place], [place], [place] and [place]. This disclosure is being madepursuant to the Care Everywhere program and may not contain all information available regarding this patient. Last updated 18.[facility] Allergies No known active allergies Medications * [...] 10/18/2023 1:37 PM CDT Plan of Treatment Upcoming Encounters Date Type Department Care Team (Late st Contact Info) Description 10/30/2024 3:45 PM CDT Office Visit [facility] - SWAGE TOOLSETTER [address], [facility] [address] [place] [address] Alvin Mejia Che, MD [address] [facility] [address] [place] [address] Health Maintenance Due Date Last Done Comments [...] of 2) 2020 COVID-19 VACCINE (3 - season) 2024 12/17/2020, 11/23/2020 INFLUENZA VACCINE (#1) 2024 , 03/01/2020, 03/17/2019, Additional history exists DEPRESSION SCREENING 05/06/2024 09/24/2023 SCREENING FOR DIABETES 08/14/2026 08/15/2023 HIB VACCINE Aged Out No longer eligi ble based on patient's age to complete this topic HPV VACCINE Aged Out No longer eligi ble based on patient's age to complete this topic MENINGOCOCCAL (Group B) VACCINE SHARED DECISION-MAKING Aged Out No longer eligible based on patient's age to complete this topic MENINGOCOCCAL GROUPS A/C/Y/W VACCINE Aged Out No longer eligible based on patient's age to complete this topic Medical Devices Implanted Type Area Helminthologist Device Identifier Shelf Expiration Date Model / Serial / Lot Sys Ureth Supp Obtryx Midurethral Trnstr Implanted:Qty: 1 on 09/16/2023 by Alvin Mejia Che, MD at [facility] N/A: Urethra [employer] Scimed 12/17/2025 [id number] / / [id number] Procedures Procedure Name Priority Date/Time Associated Diagnosis [...] 10.4 mg/dL [facility] Comment: Test Performed at: [facility] [address] CASSY HANLEY MD Blood BLOOD SPECIMEN / Unknown 08/15/2023 10:12 AM CDT 08/15/2023 10:14 AM CDT Alvin Mejia MD LAB - CHEMISTRY ALEM [facility] [address] [place] [address] from Last 3 Months or Most Recently Relevant to Health Maintenance Care Teams Outbound Sales Specialist Relationship Specialty Start Date End Date Willie Vinson PA [address] [place] [phone] PCP - General Physician Machine Shop Helper 07/03/23
--- OUTSIDE RECORDS SUMMARY | 2024-07-25 07:44 | XMS_ITS | Encounter Summary ---
Author Organization [facility] Address [address] [place] [address] Care Team Providers Care Community Service Director Name Role Phone Willie Vinson Primary Care Provider [phone] Reason for Visit * Reason Onset Date Comments Question 09/19/2023 Encounter Details Date Type Department Care Team (Late st Contact Info) Description 09/19/2023 Telephone [facility] - STENOGRAPHER SECRETARY [address], [facility] [address] [place] [address] Alvin Mejia Che, MD [address] [facility] [address] [place] [address] Question Social History Tobacco Use [...] be an issue * Telephone Encounter - Bryan, Kari - 09/19/2023 8:08 AM CDT Pt calling with a few questions, she did have surgery on sat and has a catheter . But she has some questions.. Please ocntact [phone] documented in this encounter Plan of Treatment Upcoming Encounters Date Type Department Care Team (Late st Contact Info) Description 10/30/2024 3:45 PM CDT Office Visit [facility] - STENOGRAPHER SECRETARY [address], [address] [address] Alvin Mejia Che, MD [address] [facility] [address] [place] [address] documented as of this encounter Visit Diagnoses Not on filedocumented in this encounter Care Teams Community Service Director Relationship Specialty Start Date End Date Willie Vinson PA [address] [place] [phone] PCP - General Physician Household Appliance Assembler 07/03/23 documented as of this encounter
--- OUTSIDE RECORDS SUMMARY | 2024-07-25 07:44 | XMS_ITS | Clinical Summary ---
Author Organization [facility] Address [address] [place] [address] Care Team Providers Care Merchandise Executive Name Role Phone Unavailable Primary Care Provider [...] 70.8 kg (156 lb) 04/10/2018 9:42 AM ARCHITECTURAL COATING FINISHER Height 157.5 cm (5' 2 ) 04/10/2018 9:42 AM ARCHITECTURAL COATING FINISHER Body Mass Index 28.53 04/10/2018 9:42 AM ARCHITECTURAL COATING FINISHER Plan of Treatment Health Maintenance Due Date [...]
== END 2024-07-25 07:43 | disposition home or self-care (01) ==
PROVIDERS: Visit Provider Nurse Practitioner Women's Health
DX: Z12.31 Encounter for screening mammogram for malignant neoplasm of breast (principal)
CPT/HCPCS: 77063; 77067